=== PATIENT | female | born 1970 | race Caucasian/White ===

== ENCOUNTER 2018-11-14 08:08 | Emergency (ER) | payer MEDICAID ==
[~2018-11-14 08:08] MED LIST: ALEVE; BENZ100C4 PO; CEPH500C24 PO; CITA-155 PO; CODE118S5 PO; IBUP800T37 PO; KET10 PO; MECL25TA9 PO; MULT1TAB64 PO; ONDA4TAB PO; ONDA4TAB97 PO; OXYC-865 PO; OXYC10TA67 PO; PRED20TA6 PO; SERT-1 PO; TAMS0.4C25 PO; TERB250T63 PO; TOPI-23 PO; VENL37.594 PO; anti depressant
--- NOTE | 2018-11-14 08:10 | ER Report ---
History and Physical Time Seen By MD: 08:10 HPI/ROS CHIEF COMPLAINT: Headache HISTORY OF PRESENT ILLNESS: Patient is a 48-year-old female here with complaints of headache, migraine typical symptoms. Denies focal neurological findings. Patient describes headache as frontal distribution with radiation to the bitemporal area. Patient is afebrile, hemodynamically stable. Patient denies taking medications prior to arrival. Patient reports having nausea, vomiting, + photosensitivity REVIEW OF SYSTEMS: Constitutional: No fever, no chills. Eyes: No discharge. ENT: No sore throat. Cardiovascular: No chest pain, no palpitations. Respiratory: No cough, no shortness of breath. Gastrointestinal: No abdominal pain, + nausea and vomiting. Genitourinary: No hematuria. Musculoskeletal: No back pain. Skin: No rashes. Neurological: + frontal b/l headache. Allergies: Coded Allergies: Penicillins (Verified Allergy, Intermediate, itch, 11/14/18) BEE STINGS (Verified Allergy, Unknown, 11/14/18) promethazine (Verified Allergy, Unknown, 11/14/18) alcohol (Verified Adverse Reaction, Severe, SEVERE VOMITING EVEN IF IN MEDS (NYQUIL), 11/14/18) nalbuphine HCl (Verified Adverse Reaction, Intermediate, nausea and vomiting, 11/14/18) Uncoded Allergies: onions (Allergy, Unknown, 03/31/13) Home Meds Discontinued Reported Medications Multivitamin (MULTI VITAMIN DAILY) 1 Each Tablet, 1 EACH PO 04/03/16 Discontinued Scripts Cephalexin Monohydrate (CEPHALEXIN) 500 Mg Cap, 500 MG PO Q6H for 7 Days, #28 CAP 0 Refills Prov:TITUS GODWIN MD 08/20/17 Hx Smoking: No Smoking Status: Never Smoker Hx Substance Use Disorder: No Hx Alcohol Use: No Constitutional Vital Sign - Last 24 Hours 11/14/18 11/14/18 11/14/18 11/14/18 08:12 08:13 08:30 08:38 Temp 97.2 Pulse 68 91 Resp 22 B/P (MAP) 103/50 (67) 103/50 110/72 (85) Pulse Ox 99 O2 Delivery Room Air 11/14/18 08:49 O2 Flow Rate 2.0 Physical Exam General Appearance: The patient is alert, has no immediate need for airway protection and no signs of toxicity. Uncomfortable appearing Eyes: Pupils equal and round no pallor or injection. ENT, Mouth: Mucous membranes are moist. Respiratory: There are no retractions, lungs are clear to auscultation. Cardiovascular: Regular rate and rhythm. [ ] Gastrointestinal: Abdomen is soft and non tender, no masses, bowel sounds nor mal. Neurological: No focal neurological deficits Skin: Warm and dry, no rashes. Musculoskeletal: Neck is supple non tender. Extremities are nontender, nonswollen and have full range of motion. DIFFERENTIAL DIAGNOSIS: After history and physical exam differential diagnosis was considered for headache including but not limited to subarachnoid hemorrhage, migraine headache, tension headache and infectious causes such as meningitis, pharyngitis and sinusitis. Medical Decision Making ED Course/Re-evaluation ED Course Patient is a 48-year-old female here with complaints of headache, nausea, vomiting, photosensitivity with typical migraine distribution of symptoms. Patient was given normal saline bolus, Toradol, Benadryl, magnesium, Decadron. Patient had significant relief of symptoms. Return precautions were provided Decision to Disposition Date: Nov 14, 2018 Decision to Disposition Time: 09:33 Depart Departure Latest Vital Signs Vital Signs Date Time Temp Pulse Resp B/P (MAP) Pulse Ox O2 Delivery O2 Flow Rate FiO2 11/14/18 08:49 2.0 11/14/18 08:38 91 11/14/18 08:30 110/72 (85) 11/14/18 08:13 97.2 22 99 Room Air Impression: Primary Impression: Headache Condition: Improved Disposition: HOME OR SELF-CARE New Scripts No Active Prescriptions or Reported Meds Patient Instructions: Acute Headache (ED) Additional Instructions: Please drink plenty of water. Please take Tylenol or ibuprofen as needed for control of headache. Please return immediately if you develop weakness, visual changes, inability to keep down food or fluids, fevers. DEWEY RAZA DO Nov 14, 2018 08:10
[2018-11-14] MEDS ORDERED: NS(*) 0.9% 1000 ML BAG 1,000 ML IV ONE (08:22)
[2018-11-14] MEDS ORDERED: METOCLOPRAMIDE 10 MG/2 ML SDV IVP ONE (08:25)
[2018-11-14] MEDS ORDERED: DEXAMETHASONE SOD PHOS 10MG/ML IVP ONE (08:25)
[2018-11-14] MEDS ORDERED: diphenhydrAMINE 50 MG/ML VIAL IVP ONE (08:25)
[2018-11-14] MEDS ORDERED: MAGNESIUM SUL 50% 1GM/2ML VIAL IVP ONE (08:25)
[2018-11-14] MEDS ORDERED: KETOROLAC 30 MG/ML VIAL IVP ONE (08:25)
[2018-11-14 08:30] VITALS: BP 110/72
== END 2018-11-14 09:50 | disposition home or self-care (01) ==
LOC: ER 08:22
DX: R51 Headache (principal)
CPT/HCPCS: 96361; 96374; 96375; 99284; J1100; J1200; J1885; J2765; J3475; J7030